=== PATIENT | female | born 1985 | race Caucasian/White ===

== ENCOUNTER 2018-08-25 13:41 | Emergency (ER) | payer OTHER ==
[2018-08-25] MEDS: IBUPROFEN 600 MG TAB PO ×2 (14:35→14:43)
[2018-08-25] MEDS: IBUPROFEN LIQUID (PED) 20 MG/ML CUP PO (14:46)
== END 2018-08-25 14:48 | disposition home or self-care (01) ==
LOC: FTE 13:41
DX: J02.9 Acute pharyngitis, unspecified (principal)
CPT/HCPCS: 99283; Z7502